=== PATIENT | female | born 1995 | race Two or more races ===

== ENCOUNTER 2018-08-23 20:14 | Emergency (ER) | payer OTHER ==
[~2018-08-23] VITALS: Ht 170.2 cm; Wt 102.4 kg
[2018-08-23 20:18] VITALS: BP 129/82
[2018-08-23] MEDS ORDERED: DIPHENHYDRAMINE 25 MG CAPSULE ONE (20:29)
[2018-08-23] MEDS ORDERED: FAMOTIDINE 20 MG TABLET ONE (20:29)
[2018-08-23] MEDS ORDERED: DIPHENHYDRAMINE 25 MG CAPSULE PO ONE (20:30)
[2018-08-23] MEDS ORDERED: FAMOTIDINE 20 MG TABLET PO ONE (20:30)
== END 2018-08-23 22:54 | disposition home or self-care (01) ==
LOC: ED 22:45
DX: T78.3XXA Angioneurotic edema, initial encounter (principal)
CPT/HCPCS: 99284; J7512; Q0163